=== PATIENT | female | born 1955 | race Caucasian/White ===

== ENCOUNTER → 2021-08-06 02:27 | Outpatient (CLI) | payer BC, SELFPAY ==
[2021-08-07 15:56] LABS: SARS-CoV-2 RNA PCR Negative
== END ==
DX: Z20.822 Contact with and (suspected) exposure to COVID-19 (principal)
CPT/HCPCS: C9803; U0003; U0005

== ENCOUNTER 2022-06-21 14:30 | Outpatient (RCR) | payer MEDICARE, SELFPAY ==
[2022-04-20 13:07] VITALS: BMI 31.1
[2022-04-20 14:14] VITALS: BMI 31.1
== END 2022-07-12 11:31 | disposition home or self-care (01) ==
LOC: ANHDMC 14:30
DX: E11.69 Type 2 diabetes mellitus with other specified complication (principal); E11.65 Type 2 diabetes mellitus with hyperglycemia; Z71.3 Dietary counseling and surveillance; Z71.89 Other specified counseling
CPT/HCPCS: 97802; G0108; G0109

== ENCOUNTER 2022-09-07 14:30 | Outpatient (RCR) | payer MEDICARE, SELFPAY | END 2022-09-15 11:09 | disposition home or self-care (01) | LOC: ANHDMC 14:30 | DX: E11.69 Type 2 diabetes mellitus with other specified complication (principal); E11.65 Type 2 diabetes mellitus with hyperglycemia; Z71.89 Other specified counseling | CPT/HCPCS: 99199; G0109 ==